=== PATIENT | female | born 1965 | race Caucasian/White ===

== ENCOUNTER 2022-05-08 15:23 | Emergency (ER) | payer OTHER, SELFPAY ==
[2022-05-08 15:47] VITALS: BP 127/90; PULSE 80; RESP 16; TEMP 36.8; O2SAT 95; BMI 27.4
--- NOTE | 2022-05-08 16:16 | ED_ITS ---
HPI - General Adult General Chief complaint: Unspecified Complaint, Adult Stated complaint: Tested positive for COVID Time Seen by Provider: 05/08/22 15:35 History of Present Illness HPI narrative: This 56-year-old female comes in with cough and generalized malaise. These symptoms started a couple days ago. She tested positive for COVID. She comes in wondering if Paxlovid would be beneficial for her. She does not report any shortness of breath. She has not had any fevers. Related Data Home Medications Medication Instructions Recorded Confirmed acyclovir 400 mg tablet 400 mg PO DAILY 05/08/22 05/08/22 paroxetine HCl 20 mg tablet (Paxil) 20 mg PO DAILY 05/08/22 05/08/22 trazodone 50 mg tablet 50 mg PO QHS 05/08/22 05/08/22 Previous Rx's Medication Instructions Recorded acetaminophen 300 mg-codeine 30 mg 1 tab PO Q6H PRN pain #20 tabs 05/08/22 tablet Allergies Allergy/AdvReac Type Severity Reaction Status Date / Time No Known Drug Allergies Allergy Verified 05/08/22 15:44 Review of Systems Status of ROS: Reports: 10 or more systems reviewed and unremarkable except as noted in History and below Narrative: Constitutional: No fevers, no weight gain or loss. Eyes: No discharge. No vision changes. HENT: No congestion, no sore throat, no ear pain. Cardiovascular: No chest pain, no palpitations. Respiratory: No shortness of breath, no wheezes. Frequent cough. Gastrointestinal: No abdominal pain, no vomiting, no diarrhea. Genitourinary: No dysuria, no hematuria. Musculoskeletal: Normal range of motion. Skin: No rashes, no pruritis. Neurological: No dizziness, weakness, sensory change, speech change. Endo/Heme/Allergies: No bruising or bleeding. No polydipsia. Pysch: no suicidality, no anxiety, no insomnia. All other systems reviewed and are negative. PFSH PFSH Social History Smoking Status: Never smoker How often do you have a drink containing alcohol: 2-4 times a month AUDIT-C Alcohol total score: 2 Non-prescribed substance use: denies use Exam Narrative: Exam Narrative: Constitutional: Well-developed, well-nourished, no acute distress. HEENT: Normocephalic, atraumatic. Neck: Normal range of motion. Nontender. Supple. Heart: Regular. No murmurs. Normal rate. Intact distal pulses. Lungs: Clear to auscultation. No chest discomfort. No wheezes, rhonchi, or rales. Abdomen: Normal bowel sounds. Nontender. No rebound tenderness. Genitalia: Deferred. Back: No midline tenderness. Normal range of motion. Extremities: Normal range of motion. No injury. Skin: Intact. No rash. Warm. No erythema or pallor. Neurologic: No altered sensation. No weakness. Alert and oriented. Psychiatric: No suicidality. No anxiety or depression. No insomnia. Nursing notes and vitals signs are reviewed. Const: Vital Signs, click to edit/add: Vital Signs - 24 hr 05/08/22 15:47 Temperature 98.3 F Pulse Rate [Pulse Oximeter] 80 Respiratory Rate 16 Blood Pressure [Ri ght Upper Arm] 127/90 H Pulse Oximetry 95 Oxygen Delivery Me thod Room Air Course Vital Signs Vital signs: Initial Vital Signs Temperature 98.3 F 05/08/22 15:47 Temperature Source Temporal Artery Scan 05/08/22 15:47 Pulse Rate 80 05/08/22 15:47 Pulse Rhythm 05/08/22 15:47 Respiratory Rate 16 05/08/22 15:47 Blood Pressure 127/90 H 05/08/22 15:47 Blood Pressure Mean 102 05/08/22 15:47 Blood Pressure Position Sitting 05/08/22 15:47 Pulse Oximetry 95 05/08/22 15:47 Oxygen Delivery Method 05/08/22 15:47 Vital Signs Temperature 98.3 F 05/08/22 15:47 Pulse Rate 80 05/08/22 15:47 Respiratory Rate 16 05/08/22 15:47 Blood Pressure 127/90 H 05/08/22 15:47 Pulse Oximetry 95 05/08/22 15:47 Oxygen Delivery Method 05/08/22 15:47 Temperature 98.3 F 05/08/22 15:47 Pulse Rate 80 05/08/22 15:47 Respiratory Rate 16 05/08/22 15:47 Blood Pressure 127/90 H 05/08/22 15:47 Pulse Oximetry 95 05/08/22 15:47 Oxygen Delivery Method 05/08/22 15:47 Medical Decision Making [facility] Narrative Medical decision making narrative: This patient comes in with symptoms related to COVID infection. Her vital signs are in normal range. I discussed lab and imaging options but in a process of shared decision making these were declined as they are not strongly indicated at this time. She did receive an oral dose of dexamethasone 10 mg and a prescription for Tylenol 3. I did describe signs and symptoms that would indicate a need for return and re-evaluation. Discharge Plan Discharge Clinical Impression: COVID-19 Patient Disposition: Home, Self-Care Condition: Stable Additional Instructions: Take medication as needed and indicated. Follow up with MD or return if worsening. Prescriptions: New acetaminophen-codeine 300-30 mg tablet 1 tab PO Q6H PRN (Reason: pain) Qty: 20 0RF No Action paroxetine HCl [Paxil] 20 mg tablet 20 mg PO DAILY trazodone 50 mg tablet 50 mg PO QHS acyclovir 400 mg tablet 400 mg PO DAILY Stand Alone Forms: [email or web address] Info Instructions
[2022-05-08] MEDS: dexAMETHasone 10 MG/ML inj PO (16:28)
[2022-05-08 16:47] VITALS: BP 127/90; PULSE 80; RESP 16; TEMP 36.8
== END 2022-05-08 16:48 | disposition home or self-care (01) ==
PROVIDERS: Emergency Provider Emergency Medicine Emergency Medical Services
DX: U07.1 COVID-19 (principal)
CPT/HCPCS: 99283; 99284; J1100